=== PATIENT | female | born 1970 | race Caucasian/White ===

== ENCOUNTER 2018-01-27 07:20 | Outpatient (CLI) | payer OTHER ==
[2018-01-28 08:07] LABS: DEHYDROEPIANDROSTERONE SULFATE 147.2 ug/dL (41.2-243.7); ESTRADIOL 170.6 pg/mL (.); PROGESTERONE <0.1 ng/mL (.); TESTOSTERONE, SERUM TOTAL 32 ng/dL (8-48)
[2018-01-29 09:11] LABS: TESTOSTERONE, FREE (DIRECT) 3.3 pg/mL (0.0-4.2)
== END 2018-01-27 19:21 | disposition home or self-care (01) ==
LOC: SLB 07:20
PROVIDERS: ATTEND Specialist
DX: E34.9 Endocrine disorder, unspecified (principal)
CPT/HCPCS: 36415; 82627; 82670; 83001; 84144; 84402; 84403

== ENCOUNTER 2019-03-18 07:53 | Outpatient (CLI) | payer BC, OTHER ==
[2019-03-18 08:40] LABS: BASOPHILS % (AUTO) 0.8 % (0.0-2.0); EOSINOPHILS # (AUTO) 0.2 K/uL (0.0-0.4); EOSINOPHILS % (AUTO) 4.1 % (0.0-4.0); HEMATOCRIT 38.4 % (36-48); HEMOGLOBIN 13.3 g/dL (12.0-16.0); LYMPHOCYTES # (AUTO) 1.2 K/uL (1.0-5.5); LYMPHOCYTES % (AUTO) 21.5 % (20.5-51.5); MEAN CORPUSCULAR HEMOGLOBIN 34 pg (27-31); MEAN CORPUSCULAR HGB CONC 35 % (32-36); MEAN CORPUSCULAR VOLUME 97 fL (79.0-98.0); MONOCYTES # (AUTO) 0.4 K/uL (0.0-1.0); MONOCYTES % (AUTO) 6.5 % (1.7-9.3); NEUTROPHILS # (AUTO) 3.9 K/uL (1.8-7.7); NEUTROPHILS % (AUTO) 67.1 % (40.0-70.0); PLATELET COUNT (AUTO) 259 K/uL (130-430); RED BLOOD CELL COUNT(AUTO) 3.98 MIL/uL (4.2-6.2); RED CELL DISTRIBUTION WIDTH 12.9 % (9.0-15.0); WHITE BLOOD COUNT (AUTO) 5.8 K/uL (4.8-10.8)
[2019-03-18 09:20] LABS: ANION GAP 6 (5-15); CALCIUM 8.6 mg/dL (8.4-11.0); CHLORIDE 102 mmol/L (98-107); CREATININE 0.85 mg/dL (0.55-1.30); GFR AFRICAN AMERICAN 91 mL/min (>90); GLUCOSE 106 mg/dL (70-99); POTASSIUM 4.2 mmol/L (3.5-5.1); SODIUM SERUM 134 mmol/L (136-145); TOTAL BILIRUBIN 0.5 mg/dL (0.0-1.0); UREA NITROGEN, BLOOD 11 mg/dL (8-21)
[2019-03-18 09:21] LABS: ALANINE AMINOTRANSFERASE 24 U/L (12-78); ALBUMIN 3.6 g/dL (3.4-4.8); ASPARTATE AMINOTRANSFERASE 18 U/L (10-37); URIC ACID 4.8 mg/dL (2.4-7.0)
[2019-03-18 09:51] LABS: CHOLESTEROL 197 mg/dL (<200); HDL CHOLESTEROL 69 mg/dL (>55); TRIGLYCERIDES 168 mg/dL (30-150)
[2019-03-18 09:52] LABS: LDL CHOLESTEROL 97 mg/dL (<100)
[2019-03-18 10:05] LABS: C-REACTIVE PROTEIN QUANT < 0.2 mg/dL (0-0.5)
[2019-03-18 10:31] LABS: ERYTHROCYTE SEDIMENTATION RATE 12 MM/HR (0-20)
[2019-03-19 10:09] LABS: HEMOGLOBIN A1C 5.5 % (4.8-5.6)
== END 2019-03-18 18:07 | disposition home or self-care (01) ==
LOC: SLB 07:53
PROVIDERS: ATTEND Internal Medicine
DX: Z00.00 Encounter for general adult medical examination without abnormal findings (principal)
CPT/HCPCS: 36415; 80053; 80061; 82306; 82607; 83036; 84443-TC; 84550-TC; 85025; 85651-TC; 86140

== ENCOUNTER 2019-03-31 10:53 | Outpatient (CLI) | payer OTHER | END 2019-03-31 18:49 | disposition home or self-care (01) | LOC: SMI 10:53 → SMA 18:49 | PROVIDERS: ATTEND Specialist | DX: Z12.31 Encounter for screening mammogram for malignant neoplasm of breast (principal) | CPT/HCPCS: 77067 ==

== ENCOUNTER 2019-04-03 11:02 | Outpatient (CLI) | payer OTHER | END 2019-04-03 21:23 | disposition home or self-care (01) | LOC: SMI 11:02 | PROVIDERS: ATTEND Internal Medicine | DX: R42 Dizziness and giddiness (principal); H91.91 Unspecified hearing loss, right ear | CPT/HCPCS: 70551 ==

== ENCOUNTER 2019-05-02 09:52 | Outpatient (CLI) | payer OTHER | END 2019-05-03 20:19 | disposition home or self-care (01) | LOC: SMI 09:52 | PROVIDERS: ATTEND Otolaryngology | DX: D33.3 Benign neoplasm of cranial nerves (principal) | CPT/HCPCS: 70553 ==

== ENCOUNTER 2019-10-15 10:47 | Outpatient (CLI) | payer OTHER, SELFPAY | END 2019-10-15 20:13 | disposition home or self-care (01) | LOC: SLB 10:47 | PROVIDERS: ATTEND Specialist | DX: Z03.818 Encounter for observation for suspected exposure to other biological agents ruled out (principal) | CPT/HCPCS: C9803; U0003 ==

== ENCOUNTER 2020-01-23 10:07 | Outpatient (CLI) | payer OTHER | END 2020-01-23 20:28 | disposition home or self-care (01) | LOC: SUS 10:07 | PROVIDERS: ATTEND Specialist | DX: R10.9 Unspecified abdominal pain (principal); R19.00 Intra-abdominal and pelvic swelling, mass and lump, unspecified site | CPT/HCPCS: 76830-TC; 76857 ==

== ENCOUNTER 2020-02-01 11:24 | Outpatient (CLI) | payer OTHER, SELFPAY | END 2020-02-01 20:51 | disposition home or self-care (01) | LOC: SLB 11:24 | PROVIDERS: ATTEND Internal Medicine | DX: Z20.828 Contact with and (suspected) exposure to other viral communicable diseases (principal) | CPT/HCPCS: C9803; U0003 ==

== ENCOUNTER 2020-05-07 06:59 | Outpatient (CLI) | payer OTHER ==
[2020-05-07 08:10] LABS: BASOPHILS % (AUTO) 0.6 % (0.0-2.0); EOSINOPHILS # (AUTO) 0.3 K/uL (0.0-0.4); EOSINOPHILS % (AUTO) 4.5 % (0.0-4.0); HEMATOCRIT 40.5 % (36-48); HEMOGLOBIN 13.8 g/dL (12.0-16.0); LYMPHOCYTES # (AUTO) 1.7 K/uL (1.0-5.5); LYMPHOCYTES % (AUTO) 31.2 % (20.5-51.5); MEAN CORPUSCULAR HEMOGLOBIN 32 pg (27-31); MEAN CORPUSCULAR HGB CONC 34 % (32-36); MEAN CORPUSCULAR VOLUME 95 fL (79.0-98.0); MONOCYTES # (AUTO) 0.4 K/uL (0.0-1.0); NEUTROPHILS # (AUTO) 3.2 K/uL (1.8-7.7); NEUTROPHILS % (AUTO) 56.7 % (40.0-70.0); PLATELET COUNT (AUTO) 247 K/uL (130-430); RED BLOOD CELL COUNT(AUTO) 4.27 MIL/uL (4.2-6.2); RED CELL DISTRIBUTION WIDTH 13.3 % (9.0-15.0); WHITE BLOOD COUNT (AUTO) 5.6 K/uL (4.8-10.8)
[2020-05-07 08:13] LABS: BILIRUBIN,URINE NEGATIVE (NEGATIVE); BLOOD, URINE NEGATIVE (NEGATIVE); COLOR,URINE YELLOW (YELLOW); GLUCOSE,URINE NEGATIVE (NEGATIVE); KETONES,URINE NEGATIVE (NEGATIVE); LEUKOCYTE ESTERASE ,URINE 1+ (NEGATIVE); NITRITE, URINE NEGATIVE (NEGATIVE); PH,URINE 6.5 (5.0-8.0); PROTEIN URINE NEGATIVE (NEGATIVE); UROBILINOGEN,URINE 0.2 (0.2-1.0)
[2020-05-07 08:15] LABS: CLARITY/URINE SLIGHTLY HAZY (CLEAR)
[2020-05-07 08:27] LABS: ALBUMIN 3.9 g/dL (3.4-4.8); CREATININE 1.09 mg/dL (0.55-1.30); POTASSIUM 4.4 mmol/L (3.5-5.1); THYROID STIMULATING HORMONE 1.62 uIu/mL (0.36-3.74); TOTAL BILIRUBIN 0.6 mg/dL (0.0-1.0)
[2020-05-07 08:40] LABS: BACTERIA,URINE FEW /HPF (None Seen); MUCUS,URINE 1+ /LPF (None Seen); RBC,URINE NONE SEEN /HPF (0-3)
[2020-05-08 06:08] LABS: HEMOGLOBIN A1C 5.6 % (4.8-5.6)
== END 2020-05-07 20:45 | disposition home or self-care (01) ==
LOC: SLB 06:59
PROVIDERS: ATTEND Internal Medicine
DX: Z00.00 Encounter for general adult medical examination without abnormal findings (principal)
CPT/HCPCS: 36415; 80053; 80061; 81000-TC; 82306; 82607; 83036; 84443-TC; 85025

== ENCOUNTER 2020-05-10 10:52 | Outpatient (CLI) | payer OTHER, SELFPAY | END 2020-05-10 20:55 | disposition home or self-care (01) | LOC: SMA 10:52 | PROVIDERS: ATTEND Internal Medicine | DX: Z12.31 Encounter for screening mammogram for malignant neoplasm of breast (principal) | CPT/HCPCS: 77067 ==